=== PATIENT | female | born 1955 | race Caucasian/White ===

== ENCOUNTER → 2016-12-19 | Outpatient (CLI) | payer BC ==
[~2016-12-19] MED LIST: ASPI-586 PO; BPR150TCR PO; CHOL100045 PO; CLOP75TA3 PO; CYAN1TAB26 PO; ESTR42.52 VG; ROSU20TA PO; SIMV40TA2 PO; TAMO20TA2 PO; UBID400C6 PO
[2016-12-19 09:22] LABS: BASOPHILS % (AUTO) 1 % (0-2); EOSINOPHILS # (AUTO) 0.1 10^3uL; EOSINOPHILS % (AUTO) 2 % (0-4); LYMPHOCYTES # (AUTO) 2.3 X10^3; MEAN CORPUSCULAR HEMOGLOBIN 28.1 PG (26.0-34.0); MEAN CORPUSCULAR HGB CONC 33.3 g/dL (31.0-37.0); MEAN CORPUSCULAR VOLUME 85 FL (80-100); MONOCYTES # (AUTO) 0.6 X10^3; MONOCYTES % (AUTO) 8 % (3-11); NEUTROPHILS % (AUTO) 62 % (51-67); PLATELET COUNT 351 10^3uL (150-450); WHITE BLOOD COUNT 8.11 10^3uL (4.0-11.0)
[2016-12-19 10:06] LABS: ALBUMIN 4.5 g/dL (3.4-5.0); ANION GAP 15.9 MEQ/L (3-15); CALCULATED IONIZED CALCIUM 4.3 mg/dL (3.8-4.6); TOTAL PROTEIN 7.1 g/dL (6.4-8.5)
--- NOTE | 2016-12-19 10:43 | Diagnostic Imaging Report ---
INDICATION: History of breast cancer. COMPARISON: 05/02/2015 FINDINGS: Frontal and lateral views of the chest demonstrate normal heart size and pulmonary vascularity. The lungs are clear. There are no signs of infiltrate, pleural effusions or pneumothoraces. The visualized osseous structures show no acute abnormalities. IMPRESSION: 1. No acute process. No signs of infiltrates, effusions or pneumothoraces. Dictated by: Dictated on workstation # [id number]
== END ==
LOC: LAB 09:12
PROVIDERS: ATTEND Internal Medicine Hematology & Oncology
DX: C50.412 Malignant neoplasm of upper-outer quadrant of left female breast (principal)
CPT/HCPCS: 36415; 71020; 80053; 85025